=== PATIENT | male | born 1985 | race Caucasian/White ===

== ENCOUNTER 2022-06-17 20:47 | Emergency (ER) | payer BC, SELFPAY ==
[2022-06-17] VITALS (24 sets, daily range): BP systolic 134–161; BP diastolic 77–90; PULSE 89–118; RESP 14–24; TEMP 36.8; O2SAT 97–100
--- NOTE | ~2022-06-17 | CT_ITS ---
EXAMINATION: CT abdomen pelvis w con DATE: 06/17/2022 22:07 INDICATION: RLQ pain TECHNIQUE: Computed tomography (CT) of the abdomen and pelvis was performed with 100 mL Omnipaque-350 intravenous contrast. Automated exposure control and iterative reconstruction technique were employe d. The dose-length product was 433.99 mGy-cm. COMPARISON: None. FINDINGS: Lower thorax: Bibasilar dependent atelectasis Liver: Normal. Biliary/Gallbladder: Gallbladder is normal. No bile duct dilation. Pancreas: No mass or duct dilation. Spleen: Normal. Adrenals:No mass. Kidneys: No mass, stone, or hydronephrosis. GI tract: No small or large bowel dilation. Normal appendix. Diverticulosis without diverticulitis. Mesentery/Peritoneum: No ascites, mass, or free air. Retroperitoneum: No mass. Pelvis: Bladder is decompressed. Suggestion of low density in the right prostatic parenchyma that may represent edema, without rim enhancement. Soft Tissues: Soft tissues and body wall unremarkable. Bones: No acute osseous finding. IMPRESSION: Possible prostatitis. No other acute abdominopelvic process detected. Reviewed, dictated and finalized at location K.
--- NOTE | 2022-06-17 20:51 | ED.AMS ---
HPI - Altered Mental Status General Chief Complaint: Overdose Stated Complaint: HI HEART RATE S/P EATING EDIBLE History of Present Illness HPI narrative: 36-year-old male presented to the emergency department for evaluation of paranoia and tachycardia after eating a 50 mg delta 9 THC cookie. Patient states he had a cookie at about 630 and approximately 30 minutes after eating had onset of the symptoms. Patient denies any prior cardiac history. Patient denies any chest pain or shortness of breath. Patient does report a prior history of gastritis. Patient does report a right lower quadrant abdominal burning that has been present for many months. Related Data Allergies Allergy/AdvReac Type Severity Reaction Status Date / Time No Known Allergies Allergy Verified 06/17/22 20:56 Review of Systems Review of Systems: CONSTITUTIONAL: Denies fever, chills, or sweats. EYES: Denies visual changes, redness, or discharge. ENT: Denies rhinorrhea, congestion, sore throat, or otalgia. CARDIOVASCULAR: Denies chest pain, palpitations, or edema. RESPIRATORY: Denies cough or dyspnea. GASTROINTESTINAL: See HPI GENITOURINARY: Denies dysuria or hematuria. SKIN: Denies rash or itching. MUSCULOSKELETAL: Denies back pain, joint pain, or myalgia. NEUROLOGIC: Denies headache, numbness, or weakness. Exam Narrative: APPEARANCE: Well appearing, no pain, no distress, well-nourished. HEAD: normocephalic, atraumatic. EYES: PERRLA/EOMI, conjunctivae clear. NOSE: Normal no drainage THROAT: Pharynx clear, no exudate. NECK: Supple. No adenopathy, no masses. RESPIRATORY: Airway patent, respirations nonlabored. Clear to auscultation bilaterally, no rales, rhonchi, wheezing. CARDIOVASCULAR: Regular rate and rhythm without murmurs rubs or gallops. ABDOMINAL: Soft, nontender, nondistended, normal bowel sounds MUSCULOSKELETAL: Moves all extremities. Strength/ROM intact, No edema, No calf tenderness. NEURO: Alert. Cranial nerves II through XII intact. Grossly intact SKIN: Warm, dry. Normal Color Course Course Emergency Course: Patient denies any pain with urination or difficulty starting urination. Patient has no prior history of prostatitis. UA showed no evidence of infection. Patient did feel improved with treatment in emergency room. Patient does still have his right-sided abdominal burning which has been chronic for many months. Patient was encouraged to have follow-up with GI. Patient was also advised to refrain from delta 9 THC. Vital Signs Vital signs: Vital Signs Pulse Rate 118 H 06/17/22 20:55 Respiratory Rate 24 H 06/17/22 20:55 Blood Pressure 157/81 H 06/17/22 20:55 Pulse Oximetry 100 06/17/22 20:55 Temperature 98.2 F 06/17/22 21:10 Pulse Rate 47 L 06/18/22 02:46 Respiratory Rate 14 06/18/22 02:46 Blood Pressure 110/60 06/18/22 02:46 Pulse Oximetry 97 06/18/22 02:46 Oxygen Delivery Room Air 06/17/22 21:10 MDM - Altered Mental Status Lab Data Attestation: I reviewed the patient's lab results. Result diagrams: 06/17/22 20:53 06/17/22 20:53 Labs: Lab Results 06/17/22 06/17/22 06/17/22 Range/Units 20:53 20:53 21:33 WBC 10.5 H (4.5-10.0) K/mm3 RBC 5.30 (4.6-6.20) M/mm3 Hgb 16.0 (14.0-18.0) g/dL Hct 46.4 (42.0-52.0) % MCV 87.5 (80-100) fl MCH 30.2 (26-34) pg MCHC 34.5 (32-36) g/dl RDW 12.3 (11.5-14.5) % Plt Count 325 (150-375) k/mm3 MPV 9.7 (7.4-10.4) fl Immature Gran % (Auto) 0.7 H (0-0.5) % Neut % (Auto) 54.4 (45.5-73.1) % Lymph % (Auto) 31.5 (18.3-44.2) % [place] % (Auto) 7.6 (2.6-8.5) % Eos % (Auto) 4.9 H (0-4.4) % Baso % (Auto) 0.9 (0.2-1.2) % Lymph # (Auto) 3.32 H (0.9-3.2) K/mm3 [place] # (Auto) 0.8 H (0.1-0.6) K/mm3 Eos # (Auto) 0.5 H (0-0.3) K/mm3 Baso # (Auto) 0.1 (0.0-0.1) K/mm3 Abs Immat Gran (auto) 0.07 H (0.00-0.031) K/mm3 Absolute Neuts (auto) 5.7 (1
[2022-06-17] MEDS: SODIUM CHLORIDE 0.9% IV 1,000 ML 999 ML IV CONT (21:06)
[2022-06-17 21:17] LABS: Basophils Absolute Auto 0.1 K/mm3 (0.0-0.1); Basophils Percent Auto 0.9 % (0.2-1.2); Eosinophils Absolute Auto 0.5 K/mm3 (0-0.3); Eosinophils Percent Auto 4.9 % (0-4.4); Hematocrit 46.4 % (42.0-52.0); Immature Granulocyte Absolute 0.07 K/mm3 (0.00-0.031); Immature Granulocyte Percent A 0.7 % (0-0.5); Lymphocytes Absolute Auto 3.32 K/mm3 (0.9-3.2); Lymphocytes Percent Auto 31.5 % (18.3-44.2); Mean Corpuscular HGB Conc 34.5 g/dl (32-36); Mean Corpuscular Hemoglobin 30.2 pg (26-34); Mean Corpuscular Volume 87.5 fl (80-100); Mean Platelet Volume 9.7 fl (7.4-10.4); Monocytes Absolute Auto 0.8 K/mm3 (0.1-0.6); Monocytes Percent Auto 7.6 % (2.6-8.5); Neutrophils Absolute Auto 5.7 K/mm3 (1.3-6.7); Neutrophils Percent Auto 54.4 % (45.5-73.1); Platelet Count Result 325 k/mm3 (150-375); Red Cell Distribution Width 12.3 % (11.5-14.5); White Blood Count 10.5 K/mm3 (4.5-10.0)
[2022-06-17 21:37] LABS: Alanine Aminotransferase 37 U/L (6-50); Alkaline Phosphatase 69 U/L (38-126); Anion Gap 13 mmol/L (8-16); Aspartate Amino Transferase 38 U/L (17-59); Bilirubin,Total 0.5 mg/dL (0.2-1.3); Blood Urea Nitrogen 12 mg/dL (9-20); Calcium 9.1 mg/dL (8.4-10.2); Carbon Dioxide 24 mmol/L (22-30); Chloride 98 mmol/L (98-107); Estimated CRCL calculation 100 ml/min; Estimated Glomerular Filt Rate > 60; Glucose 146 mg/dL (65-110); Magnesium 1.9 mg/dL (1.6-2.3); Potassium 3.1 mmol/L (3.4-5.0); Sodium 135 mmol/L (137-145)
[2022-06-17 21:59] LABS: Amphetamine Screen Urine Negative (Negative); Barbiturate Screen Urine Negative (Negative); Benzodiazepines Screen Urine Negative (Negative); Cannabinoid Screen Urine Positive (Negative); Cocaine Screen Urine Negative (Negative); Methadone Screen Urine Negative (Negative); Opiate Screen Urine Negative (Negative); Phencyclidine Screen Urine Negative (Negative)
[2022-06-17 22:07] LABS: Thyroid Stimulating Hormone 0.479 uIU/mL (0.465-4.680)
[2022-06-17 23:03] LABS: Appearance Urine Clear (Clear); Bilirubin Urine Negative (Negative); Blood Urine Negative (Negative); Color Urine Yellow (Yellow); Glucose Urine UA Negative (Negative); Ketones Urine Negative (Negative); Leukocyte Esterase Ur Negative LEU/UL (Negative); Nitrate Urine Negative (Negative); Protein Urine Negative (Negative); Specific Grav Ur 1.025 (1.001-1.035); Urobilinogen Urine 0.2 mg/dL (<2.0); pH Urine 5.5 (5.0-9.0)
[2022-06-17 23:15] LABS: Calcium Oxalate Crystals Urine Present /hpf; Mucus Urine Rare /lpf; RBC Urine 0-2 /hpf (0-2); WBC Urine 0-3 /hpf
[2022-06-17 23:16] LABS: Add Urine Microscopic? YES
[2022-06-18] VITALS (24 sets, daily range): BP systolic 107–140; BP diastolic 54–83; PULSE 47–99; RESP 14–20; O2SAT 95–99
[2022-06-18] MEDS: KCL 20 MEQ/SW 100 ML 100 ML 50 MEQ IVPB (00:02)
[2022-06-18] MEDS: POTASSIUM CHLORIDE 20 MEQ PACKET (FOR LIQUID) 40 MEQ PO (00:02)
[2022-06-18] MEDS: KETOROLAC 15 MG/ML VIAL (*BKC) IV PUSH (00:03)
[2022-06-18] MEDS: BELLADONNA ALK/PHENOB ELIX 10 ML, MAG HYDROX/ALUMINUM HYD/SIMETH 30 ML, LIDOCAINE HCL 2... PO (00:04)
[2022-06-18] MEDS: SODIUM CHLORIDE 0.9% IV 500 ML 200 ML (00:19)
== END 2022-06-18 03:05 | disposition home or self-care (01) ==
PROVIDERS: Emergency Provider Emergency Medicine
DX: T40.711A Poisoning by cannabis, accidental (unintentional), initial encounter (principal); R93.89 Abnormal findings on diagnostic imaging of other specified body structures
CPT/HCPCS: 36415; 74177; 80053; 80307; 81001; 83735; 84443; 85025; 96361; 96365; 96366; 96375; 99284; A9270; J1885; J3480; J7030; J7040; Q9967